=== PATIENT | male | born 1995 | race Caucasian/White ===

== ENCOUNTER 2022-12-13 12:26 | Emergency (ER) | payer MEDICAID, OTHER ==
[~2022-12-13] VITALS: Ht 170 cm; Wt 71.0 kg
[2022-12-13] MEDS ORDERED: LACTATED RINGERS 1,000 ML IV STA (13:03)
[2022-12-13] MEDS ORDERED: NS IV 1000 ML 1,000 ML IV STA (13:03)
[2022-12-13 13:13] LABS: BASOPHILS # (AUTO) 0.1 10^3/uL (0.0-0.1); BASOPHILS % (AUTO) 1 % (0-10); EOSINOPHILS # (AUTO) 0.1 10^3/uL (0.0-0.3); EOSINOPHILS % (AUTO) 1 % (0-10); HEMATOCRIT 37 % (40-54); HEMOGLOBIN 12.7 g/dL (13.3-17.7); LYMPHOCYTES # (AUTO) 1.8 10^3/uL (1.0-4.0); LYMPHOCYTES % (AUTO) 13 % (12-44); MEAN CORPUSCULAR HEMOGLOBIN 29 pg (25-34); MEAN CORPUSCULAR HGB CONC 34 g/dL (32-36); MEAN CORPUSCULAR VOLUME 84 fL (80-99); MEAN PLATELET VOLUME 11.2 fL (9.0-12.2); MONOCYTES # (AUTO) 0.8 10^3/uL (0.0-1.0); MONOCYTES % (AUTO) 6 % (0-12); NEUTROPHILS # (AUTO) 11.3 10^3/uL (1.8-7.8); NEUTROPHILS % (AUTO) 80 % (42-75); PLATELET COUNT 381 10^3/uL (130-400); WHITE BLOOD COUNT 14.1 10^3/uL (4.3-11.0)
[2022-12-13] MEDS ORDERED: ONDANSETRON 4 MG/2 ML (SDV) Z0FRAN IVP ONE (13:15)
[2022-12-13 13:16] VITALS: BP 143/95
[2022-12-13 13:23] LABS: BILIRUBIN,URINE NEGATIVE (NEGATIVE); CLARITY,URINE CLEAR; COLOR,URINE YELLOW; GLUCOSE, URINE (UA) 3+ (NEGATIVE); KETONES,URINE NEGATIVE (NEGATIVE); LEUKOCYTE ESTERASE ,URINE NEGATIVE (NEGATIVE); NITRITE,URINE NEGATIVE (NEGATIVE); PH,URINE 6.5 (5-9); PROTEIN,URINE NEGATIVE (NEGATIVE)
[2022-12-13 13:26] LABS: ABG PCO2 39 MMHG (35-45); ABG PH 7.43 (7.37-7.43); ABG PO2 106 MMHG (79-93)
[2022-12-13 13:27] LABS: ABG BASE EXCESS 1.5 MMOL/L (-2.5-2.5); ABG OXYGEN SATURATION 98 % (94-100); ABG TCO2 27.1 MMOL/L (21.0-31.0); ALLENS TEST YES-POS; INSPIRED O2 ROOM AIR; VENTILATOR NO
[2022-12-13 13:36] LABS: BACTERIA,URINE NEGATIVE /HPF; RBC,URINE 0-2 /HPF; SQUAMOUS EPITHELIAL CELL,UR 0-2 /HPF
[2022-12-13 13:41] LABS: EOSINOPHILS % (MANUAL) 1 %; LYMPHOCYTES % (MANUAL) 13 %; MONOCYTES % (MANUAL) 4 %; NEUTROPHILS % (MANUAL) 82 %; RBC MORPH NORMAL
[2022-12-13 13:43] LABS: ALBUMIN 4.4 GM/DL (3.2-4.5); BILIRUBIN,TOTAL 0.3 MG/DL (0.1-1.0); CREATININE SERUM 0.91 MG/DL (0.60-1.30); MAGNESIUM 1.8 MG/DL (1.6-2.4); POTASSIUM 3.5 MMOL/L (3.6-5.0); TOTAL PROTEIN 6.9 GM/DL (6.4-8.2)
[2022-12-13 13:43] LABS: AMPHETAMINE SCREEN, URINE NEGATIVE (NEGATIVE); BARBITURATE SCREEN URINE NEGATIVE (NEGATIVE); BENZODIAZEPINES SCREEN URINE NEGATIVE (NEGATIVE); CANNABINOID SCREEN, URINE POSITIVE (NEGATIVE); COCAINE SCREEN URINE NEGATIVE (NEGATIVE); METHADONE STAT NEGATIVE (NEGATIVE); OPIATE SCREEN URINE NEGATIVE (NEGATIVE); OXYCODONE STAT NEGATIVE (NEGATIVE); PROPOXYPHENE STAT NEGATIVE (NEGATIVE); TRICYCLIC ANTIDEPRESSANTS SCRE NEGATIVE (NEGATIVE)
[2022-12-13] MEDS ORDERED: METOCLOPRAMIDE INJ 10 MG/2 ML (REGLAN) IVP ONE (13:45)
[2022-12-13] MEDS ORDERED: fentaNYL INJ 100 MCG/2 ML AMP IVP ONE (14:00)
[2022-12-13] MEDS ORDERED: NS IV 1000 ML 1,000 ML IV SCH (14:00)
--- NOTE | 2022-12-13 14:35 | ED General ---
General Chief Complaint: Glucose Problems Stated Complaint: VOMITING/ELEV BLOOD SUGAR Nursing Triage Note: Patient has presented to ER with cc of vomiting and diarrhea that started this morning. He states that his blood sugar was 342 this morning and he is concerned about being in DKA. He reports that his insulin pump has humalog in the pump. Source of Information: Patient, RN Notes Reviewed Exam Limitations: No Limitations History of Present Illness Date Seen by Provider: Dec 13, 2022 Time Seen by Provider: 12:57 Initial Comments 27-year-old male patient with history of type 1 diabetes on insulin pump and previous episodes of DKA presented POV with complaining of nausea and vomiting and diarrhea and having DKA. Patient stated he had more than 10 episodes of nonbloody vomiting since this morning and 5 episodes of diarrhea and complaining of pain in his abdomen and epigastric area and rated his pain 5/10. Patient stated he had episode of DKA with the same symptom previously. Patient admitted to use marijuana more than 2 months ago and denies using other drugs and alcohol and missing his medication. Patient denies sick contact and fever and chills and urinary symptoms. Patient had blood sugar of 319 at arrival to ER. Allergies and Home Medications Allergies Coded Allergies: No Known Drug Allergies (Unverified , 12/13/22) Patient Home Medication List Home Medication List Reviewed: Yes Ondansetron (Ondansetron Odt) 4 Mg Tab.rapdis, 4 MG PO TID PRN for NAUSEA-1ST LINE Prescribed by: Mariann toribio on 12/13/22 4201 Review of Systems Review of Systems Constitutional: see HPI EENTM: see HPI Respiratory: see HPI Cardiovascular: see HPI Gastrointestinal: see HPI Genitourinary: see HPI Musculoskeletal: see HPI Skin: see HPI Psychiatric/Neurological: See HPI Hematologic/Lymphatic: See HPI Immunological/Allergic: see HPI All Other Systems Reviewed Negative Unless Noted: Yes Past Bfjtocx-[id number]-Fblzlx Hx Patient Social History Tobacco Use?: No Use of E-Cig and/or Vaping dev: Yes Substance use?: Yes Substance type: Marijuana Alcohol Use?: No Physical Exam Vital Signs Vital Signs - First Documented 12/13/22 13:16 Temp 36.5 Pulse 50 Resp 16 B/P (MAP) 143/95 (111) Pulse Ox 99 O2 Delivery Room Air Capillary Refill : Height, Weight, BMI Height: '" Weight: lbs. oz. kg; 24.00 BMI Method: General Appearance: Mild Distress Eyes: Bilateral Eye Normal Inspection HEENT: PERRL/EOMI; No Moist Mucous Membranes; Other (Dry oral mucosa) Neck: Full Range of Motion, Normal Inspection Respiratory: Chest Non Tender, Normal Breath Sounds, No Accessory Muscle Use, No Respiratory Distress Cardiovascular: No Edema, No Gallop, No JVD, Bradycardia Gastrointestinal: Normal Bowel Sounds, No Organomegaly, No Pulsatile Mass, Non Tender, Soft Back: Normal Inspection Extremity: Normal Capillary Refill, Normal Inspection Neurologic/Psychiatric: Alert, Oriented x3, No Motor/Sensory Deficits, Normal Mood/Affect Skin: Normal Color Lymphatic: No Adenopathy Progress/Results/Core Measures Suspected Sepsis SIRS Temperature: Pulse: 50 Respiratory Rate: 16 Laboratory Tests 12/13/22 12:58: White Blood Count 14.1H Blood Pressure 143 /95 Mean: 111 Laboratory Tests 12/13/22 12:58: Creatinine 0.91, Platelet Count 381, Total Bilirubin 0.3 Results/Orders Lab Results Laboratory Tests Test 12/13/22 12:58 12/13/22 12:59 12/13/22 13:10 12/13/22 13:16 Range/Units White Blood Count 14.1 H 4.3-11.0 10^3/uL Red Blood Count 4.44 4.30-5.52 10^6/uL Hemoglobin 12.7 L 13.3-17.7 g/dL Hematocrit 37 L 40-54 % Mean Corpuscular Volume 84 80-99 fL Mean Corpuscular Hemoglobin 29 25-34 pg Mean Corpuscular Hemoglobin Concent 34 32-36 g/dL Red Cell Distribution Width 12.4 10.0-14.5 % Platelet Count 381 130-400 10^3/uL Mean Platelet Volume 11.2 9.0-12.2 fL Immature Granulocyte % (Auto) 1 % Neutrophils (%) (Auto) 80 H 42-75 % Lymphocytes (%) (Auto) 13 12-44 % Monocytes (%) (Auto) 6 0-12 % Eosinophils (%) (Auto) 1 0-10 % Basophils (%) (Auto) 1 0-10 % Neutrophils # (Auto) 11.3 H 1.8-7.8 10^3/uL Lymphocytes # (Auto) 1.8 1.0-4.0 10^3/uL Monocytes # (Auto) 0.8 0.0-1.0 10^3/uL Eosinophils # (Auto) 0.1 0.0-0.3 10^3/uL Basophils # (Auto) 0.1 0.0-0.1 10^3/uL Immature Granulocyte # (Auto) 0.1 0.0-0.1 10^3/uL Neutrophils % (Manual) 82 % Lymphocytes % (Manual) 13 % Monocytes % (Manual) 4 % Eosinophils % (Manual) 1 % Blood Morphology Comment NORMAL Sodium Level 141 135-145 MMOL/L Potassium Level 3.5 L 3.6-5.0 MMOL/L Chloride Level 103 98-107 MMOL/L Carbon Dioxide Level 24 21-32 MMOL/L Anion Gap 14 5-14 MMOL/L Blood Urea Nitrogen 11 7-18 MG/DL Creatinine 0.91 0.60-1.30 MG/DL Estimat Glomerular Filtration Rate 119 BUN/Creatinine Ratio 12 Glucose Level 348 H 70-105 MG/DL Calcium Level 10.0 8.5-10.1 MG/DL Corrected Calcium 9.7 8.5-10.1 MG/DL Magnesium Level 1.8 1.6-2.4 MG/DL Total Bilirubin 0.3 0.1-1.0 MG/DL Aspartate Amino Transf (AST/SGOT) 17 5-34 U/L Alanine Aminotransferase (ALT/SGPT) 18 0-55 U/L Alkaline Phosphatase 106 40-136 U/L Total Protein 6.9 6.4-8.2 GM/DL Albumin 4.4 3.2-4.5 GM/DL Lipase 8 8-78 U/L Glucometer 319 H 70-110 MG/DL Urine Color YELLOW Urine Clarity CLEAR Urine pH 6.5 5-9 Urine Specific [place] 1.010 L 1.016-1.022 Urine Protein NEGATIVE NEGATIVE Urine Glucose (UA) 3+ H NEGATIVE Urine Ketones NEGATIVE NEGATIVE Urine Nitrite NEGATIVE NEGATIVE Urine Bilirubin NEGATIVE NEGATIVE Urine Urobilinogen 0.2 < = 1.0 MG/DL Urine Leukocyte Esterase NEGATIVE NEGATIVE Urine RBC (Auto) NEGATIVE NEGATIVE Urine RBC 0-2 /HPF Urine WBC NONE /HPF Urine Squamous Epithelial Cells 0-2 /HPF Urine Crystals NONE /LPF Urine Bacteria NEGATIVE /HPF Urine Casts NONE /LPF Urine Mucus NEGATIVE /LPF Urine Culture Indicated NO Urine Opiates Screen NEGATIVE NEGATIVE Urine Oxycodone Screen NEGATIVE NEGATIVE Urine Methadone Screen NEGATIVE NEGATIVE Urine Propoxyphene Screen NEGATIVE NEGATIVE Urine Barbiturates Screen NEGATIVE NEGATIVE Ur Tricyclic Antidepressants Screen NEGATIVE NEGATIVE Urine Phencyclidine Screen NEGATIVE NEGATIVE Urine Amphetamines Screen NEGATIVE NEGATIVE Urine Methamphetamines Screen NEGATIVE NEGATIVE Urine Benzodiazepines Screen NEGATIVE NEGATIVE Urine Cocaine Screen NEGATIVE NEGATIVE Urine Cannabinoids Screen POSITIVE H NEGATIVE Blood Gas Puncture Site RIGHT RADIAL Blood Gas Patient Temperature N/A Arterial Blood pH 7.43 7.37-7.43 Arterial Blood Partial Pressure CO2 39 35-45 MMHG Arterial Blood Partial Pressure O2 106 H 79-93 MMHG Arterial Blood HCO3 26 23-27 MMOL/L Arterial Blood Total CO2 27.1 21.0-31.0 MMOL/L Arterial Blood Oxygen Saturation 98 94-100 % Arterial Blood Base Excess 1.5 -2.5-2.5 MMOL/L Amadou Test YES-POS Blood Gas Ventilator Setting NO Blood Gas Inspired Oxygen ROOM AIR Test 12/13/22 14:34 Range/Units Glucometer 224 H 70-110 MG/DL My Orders Orders - MARIANN TORIBIO MD Comprehensive Metabolic Panel (12/13/22 13:03) Lipase (12/13/22 13:03) Ua Culture If Indicated (12/13/22 13:03) Ed Iv/Invasive Line Start (12/13/22 13:03) Cbc With Automated Diff (12/13/22 13:03) Ondansetron Injection (Zofran Injectio (12/13/22 13:15) Ns Iv 1000 Ml (Sodium Chloride 0.9%) (12/13/22 13:03) Drug Screen Stat (Urine) (12/13/22 13:03) Arterial Blood Gas (12/13/22 13:03) Magnesium (12/13/22 13:03) Manual Differential (12/13/22 12:58) Metoclopramide Injection (Reglan Injecti (12/13/22 13:45) Fentanyl Inj (Sublimaze Injection) (12/13/22 14:00) Ns Iv 1000 Ml (Sodium Chloride 0.9%) (12/13/22 14:00) Medications Given in ED Current Medications Medications Dose Ordered Sig/Eliseo Route Start Time Stop Time Status Last Admin Dose Admin Fentanyl Citrate 50 mcg ONCE ONCE IVP 12/13/22 14:00 12/13/22 14:01 DC 12/13/22 13:55 50 MCG Metoclopramide HCl 10 mg ONCE ONCE IVP 12/13/22 13:45 12/13/22 13:46 DC 12/13/22 13:55 10 MG Ondansetron HCl 4 mg ONCE ONCE IVP 12/13/22 13:15 12/13/22 13:16 DC 12/13/22 13:12 4 MG Vital Signs/I&O 12/13/22 13:16 Temp 36.5 Pulse 50 Resp 16 B/P (MAP) 143/95 (111) Pulse Ox 99 O2 Delivery Room Air Capillary Refill : Blood Pressure Mean: 111 Progress Note : Progress Note Patient with history of diabetes mellitus type 1 on insulin pump and DKA complaining of nausea and vomiting and diarrhea since this morning and concern for DKA. Patient had stable vital sign with blood sugar of 316 at arrival to ER and treated with IV fluid, Zofran, Reglan and fentanyl with improvement of his condition. CBC, CMP, lipase, UDS, UA and ABG was ordered by me and reviewed and showed mild leukocytosis without sign of DKA. Potassium was 3.5. Patient tolerated oral intake after treatment and his blood sugar dropped to 225 and advised to continue home medication. Patient advised to not eating solid food today and prescription for Zofran was given. Patient advised to follow-up with his primary care physician or return to ER as needed. Departure Impression Primary Impression: Acute gastroenteritis Additional Impressions: Uncontrolled diabetes mellitus Qualified Codes: E10.65 - Type 1 diabetes mellitus with hyperglycemia Hypokalemia Disposition: 01 HOME, SELF-CARE Condition: Improved Departure-Patient Inst. Decision time for Depature: 14:37 Referrals: NO,LOCAL PHYSICIAN (PCP) Primary Care Physician Patient Instructions: Viral gastroenteritis in adults, Diabetes Type 1, Adult (DC), Hypokalemia Add. Discharge Instructions: No solid food today Drink plenty of liquids Continue home insulin Follow-up with your primary care physician in 2 or 3 days Return to ER as needed All discharge instructions reviewed with patient and/or family. Voiced understanding. Scripts Ondansetron (Ondansetron Odt) 4 Mg Tab.rapdis 4 MG PO TID PRN for NAUSEA-1ST LINE, #10 TAB Prov: MARIANN TORIBIO MD 12/13/22 MARIANN TORIBIO MD Dec 13, 2022 14:35
[2022-12-13] MEDS ORDERED: ONDA4TAB11 PO (14:39)
== END 2022-12-13 16:51 | disposition home or self-care (01) ==
LOC: ER FS 12:28
DX: K52.9 Noninfective gastroenteritis and colitis, unspecified (principal); E10.10 Type 1 diabetes mellitus with ketoacidosis without coma; E87.6 Hypokalemia
CPT/HCPCS: 36415; 80053; 80306; 81000; 82805; 82947; 83690; 83735; 85007; 85027

== ENCOUNTER 2023-01-10 17:02 | Emergency (ER) | payer MEDICAID ==
[~2023-01-10] VITALS: Ht 170.1 cm; Wt 69.5 kg
[~2023-01-10 17:02] MED LIST: ONDA4TAB11 PO
[2023-01-10 17:36] VITALS: BP 117/80
[2023-01-10] MEDS ORDERED: cefTRIAXone 1,000 MG VIAL (for IV or IM) IM STA (18:04)
[2023-01-10] MEDS ORDERED: AMOX1TAB12 PO (18:07)
[2023-01-10] MEDS ORDERED: IBUP-1780 PO (18:07)
[2023-01-10] MEDS ORDERED: ACHD5005 PO (18:07)
--- NOTE | 2023-01-10 18:10 | ED EENT ---
History of Present Illness General Chief Complaint: Dental Problems/Pain Stated Complaint: TOOTH PAIN Nursing Triage Note: Patient c/o Rt. facial swelling x 2 wks with broken upper teeth. Patient states he called a dentist today and the dental clinic could not get him in. Patient states the dental clinic told he needed to get put on antibiotics before his dental appointment. Patient denies any fevers. Patient states he took IBU at 1430 today. Source: patient History of Present Illness Date Seen by Provider: Jan 10, 2023 Time Seen by Provider: 17:45 Initial Comments 27-year-old male presenting with complaints of right facial swelling and dental pain for the last 2 weeks. He had a tooth that had broken today when he was brushing his teeth. He had tried contacting a dentist and was told that the needed him on antibiotics prior to being able to do anything with his teeth. He denies having any fevers. He has been taking ibuprofen 800 mg during the day and last took a dose at 2:30 PM. He has been using Tylenol PM at bedtime to help him rest. He has chronic dental problems but does not have a routine dentist locally and no local primary care provider yet either. He states that he moved here from [place] and still has [place]. Timing/Duration: gradual Severity: moderate Location: facial, dental Prearrival Treatment: over the counter meds Associated Symptoms: No change in hearing, No cough, No drooling, No ear drainage; facial pain/swelling; No fever, No malaise, No nasal congestion/drainage, No poor fluid intake, No poor solids intake, No sinus infection, No sore throat; tooth pain Allergies and Home Medications Allergies Coded Allergies: No Known Drug Allergies (Unverified , 12/13/22) Patient Home Medication List Home Medication List Reviewed: Yes Amoxicillin/Potassium Clav (Amox Tr-K Clv 875-125 mg Tab) 875 Mg-125 Mg Tablet, 1 EACH PO BID Prescribed by: ANNIE SIMONS on 01/10/231806 Hydrocodone/Acetaminophen (Hydrocodone-Acetamin 5-325 mg) 5 Mg-325 Mg Tablet, 1 TAB PO Q4H PRN for PAIN SEVERE Prescribed by: ANNIE SIMONS on 01/10/231807 Ibuprofen (Ibuprofen) 800 Mg Tablet, 800 MG PO Q8H PRN for PAIN Prescribed by: ANNIE SIMONS on 7/17/23 1807 Ondansetron (Ondansetron Odt) 4 Mg Tab.rapdis, 4 MG PO TID PRN for NAUSEA-1ST LINE Prescribed by: Irene leslie on 12/13/22 1439 Review of Systems Review of Systems Constitutional: No chills, No fever Eyes: No Symptoms Reported Ears: No Symptoms Reported Nose: no symptoms reported Mouth: see HPI Throat: no symptoms reported Respiratory: no symptoms reported Cardiovascular: no symptoms reported Gastrointestinal: no symptoms reported Musculoskeletal: no symptoms reported Skin: no symptoms reported Neurological: Headache Past Mqqsfiw-Sqlphy-Onrbki Hx Patient Social History Tobacco Use?: No Use of E-Cig and/or Vaping dev: Yes E-Cig or Vaping type used: Nicotine Use of E-Cig and/or Vaping Matteo: Current Everyday User Substance use?: No Alcohol Use?: No Pt feels they are or have been: No Immunizations Up To Date Influenza Vaccine Up-to-Date: No; Not Current Past Medical History Surgery/Hospitalization HX: Insulin-dependent diabetes with an insulin pump, chronic dental caries Physical Exam Vital Signs Vital Signs - First Documented 01/10/23 17:36 Temp 37.0 Pulse 66 Resp 12 B/P (MAP) 117/80 (92) O2 Delivery Room Air Height, Weight, BMI Height: '" Weight: lbs. oz. kg; 24.00 BMI Method: General Appearance: WD/WN, no apparent distress Eyes: bilateral eye PERRL, bilateral eye EOMI Mouth/Throat: pharynx normal, dental tenderness, other (Swelling to the right cheek with painful palpation. He has widespread dental decay with multiple broken and decayed teeth and swelling to the gums. There is no purulent drainage.) Neck: non-tender, full range of motion, supple, lymphadenopathy (R), lymphadenopathy (L) Cardiovascular: normal peripheral pulses, regular rate, rhythm Respiratory: chest non-tender, lungs clear, normal breath sounds Gastrointestinal: normal bowel sounds, soft, no pulsatile mass Neurologic/Psychiatric: alert, oriented x 3 Skin: warm/dry Progress/Results/Core Measures Results/Orders My Orders Orders - ANNIE SIMONS MD Ceftriaxone Iv/Im (Rocephin Iv/Im) (01/10/23 18:04) Lidocaine 1% Inj 20 Ml (Xylocaine 1% Inj (01/10/23 18:15) Medications Given in ED Current Medications Medications Dose Ordered Sig/Eliseo Route Start Time Stop Time Status Last Admin Dose Admin Lidocaine HCl 2.1 ml ONCE ONCE INJ 01/10/23 18:15 01/10/23 18:16 DC 01/10/23 18:16 2.1 ML Vital Signs/I&O 01/10/23 17:36 Temp 37.0 Pulse 66 Resp 12 B/P (MAP) 117/80 (92) O2 Delivery Room Air Blood Pressure Mean: 92 Progress Progress Note : Progress Note With him being diabetic and having facial swelling with widespread dental decay will administer Rocephin 1 g IM to load him with an antibiotic. Sent prescription to the [facility] pharmacy for Augmentin 875 mg 1 p.o. twice daily for x10 days as well as hydrocodone 5/325 1 pill every 4 hours as needed for severe pain. Counseled to avoid taking additional acetaminophen with the pain medicine. Also counseled that the pain medicine can cause constipation so consider taking MiraLAX or laxative. Try to keep his head elevated at least 30 to 45 degrees at all times to help limit swelling and throbbing. Follow-up with the dentist as soon as possible for definitive care. You may try alternating ice and heat to the face to help with the swelling and pain. Also sent a prescription for ibuprofen 800 mg every 8 hours as needed for pain and inflammation. Departure Impression Primary Impression: Dental abscess Additional Impression: Pain due to dental caries Disposition: HOME, SELF-CARE Condition: Stable Departure-Patient Inst. Decision time for Depature: 18:06 Referrals: NO,LOCAL PHYSICIAN (PCP) Primary Care Physician [facility] Patient Instructions: Tooth Abscess ED, Tooth Decay ED, Dental Pain ED Add. Discharge Instructions: Make anTake the full course of antibiotics to treat for dental abscess and infection. Need to take the ibuprofen during the day to help with pain and inflammation. Each of the narcotic pain pills has 325 mg of acetaminophen already in the medicine so only take the Tylenol PM if needed to help you rest at night. Otherwise avoid additional acetaminophen or Tylenol. Try to keep your head elevated at least 30 to 45 degrees to help limit swelling and throbbing from the infection. Follow-up with a dentist as soon as possible for definitive care. All discharge instructions reviewed with patient and/or family. Voiced understanding. Scripts Ibuprofen (Ibuprofen) 800 Mg Tablet 800 MG PO Q8H PRN for PAIN for 10 Days, #30 TAB 0 Refills Prov: ANNIE SIMONS MD 01/10/23 Hydrocodone/Acetaminophen (Hydrocodone-Acetamin 5-325 mg) 5 Mg-325 Mg Tablet 1 TAB PO Q4H PRN for PAIN SEVERE for 3 Days, #18 TAB 0 Refills Prov: ANNIE SIMONS MD 01/10/23 Amoxicillin/Potassium Clav (Amox Tr-K Clv 875-125 mg Tab) 875 Mg-125 Mg Tablet 1 EACH PO BID for dental abscess for 10 Days, #20 TAB 0 Refills Prov: ANNIE SIMONS MD 01/10/23 ANNIE SIMONS MD Jan 10, 2023 18:10
[2023-01-10] MEDS ORDERED: LIDOCAINE 1% INJ 20 ML VIAL INJ ONE (18:15)
== END 2023-01-10 18:27 | disposition home or self-care (01) ==
LOC: EDUNIT# 17:02 → ER FS 17:04
DX: K04.7 Periapical abscess without sinus (principal); K02.9 Dental caries, unspecified; K03.81 Cracked tooth; E11.9 Type 2 diabetes mellitus without complications; F17.290 Nicotine dependence, other tobacco product, uncomplicated; Z96.41 Presence of insulin pump (external) (internal); Z28.310 Unvaccinated for COVID-19
CPT/HCPCS: 99284